=== PATIENT | male | born 1995 | race Caucasian/White ===

== ENCOUNTER 2017-11-01 15:15 | Emergency (ER) | payer OTHER ==
[~2017-11-01] VITALS: Ht 172.7 cm; Wt 63.6 kg
[~2017-11-01 15:15] MED LIST: Z.0.NO CURRENT MEDS
[2017-11-01 15:24] VITALS: BP 125/61; PULSE 55; RESP 18; TEMP 98.8; O2SAT 100
--- NOTE | 2017-11-01 16:32 | RADRPT ---
EXAM DATE/TIME: 11/01/2017 16:04 [place] COMPARISON: No previous studies available for comparison. INDICATIONS : Chest pains, short of breath. MEDICAL HISTORY : None. SURGICAL HISTORY : None. ENCOUNTER: Initial ACUITY: 1 day PAIN SCORE: 5/10 LOCATION: Bilateral chest FINDINGS: PA and lateral views of the chest demonstrate the lungs to be symmetrically aerated without evidence of mass, infiltrate or effusion. The cardiomediastinal contours are unremarkable. Osseous structure s are intact. CONCLUSION: Normal examination. González Reynolds Jr., MD on November 01, 2017 at 16:30 Board Certified Radiologist. This report was verified electronically.
[2017-11-01 18:29] LABS: AUTOMATED NEUTROPHIL # 3.6 TH/MM3 (1.8-7.7); BASOPHIL % 0.5 % (0.0-2.0); EOSINOPHIL # 0.1 TH/MM3 (0-0.4); EOSINOPHIL % 1.4 % (0.0-4.0); HEMATOCRIT 44.2 % (39.0-51.0); HEMOGLOBIN 15.3 GM/DL (13.0-17.0); LYMPH % 40.2 % (9.0-44.0); LYMPHOCYTE # 2.8 TH/MM3 (1.0-4.8); MEAN CELL VOLUME 93.5 FL (80.0-100.0); MEAN CORPUSCULAR HEMOGLOBIN 32.4 PG (27.0-34.0); MEAN CORPUSCULAR HGB CONC 34.7 % (32.0-36.0); MEAN PLATELET VOLUME 9.3 FL (7.0-11.0); MONO % 6.4 % (0.0-8.0); MONOCYTE # 0.4 TH/MM3 (0-0.9); NEUT % 51.5 % (16.0-70.0); PLATELET COUNT 202 TH/MM3 (150-450); RED BLOOD COUNT 4.72 MIL/MM3 (4.50-5.90); RED CELL DISTRIBUTION WIDTH 12.1 % (11.6-17.2)
[2017-11-01 18:39] LABS: INTERNATIONAL NORMALIZED RATIO 1.1 RATIO; PROTHROMBIN TIME - PATIENT 11.3 SEC (9.8-11.6)
[2017-11-01 18:55] LABS: BICARBONATE 27.8 MEQ/L (21.0-32.0); BLOOD UREA NITROGEN 14 MG/DL (7-18); CALCIUM 9.1 MG/DL (8.5-10.1); CHLORIDE 104 MEQ/L (98-107); CREATININE 1.07 MG/DL (0.60-1.30); GLOMERULAR FILTRATION RATE 87 ML/MIN (>89); GLUCOSE,RANDOM 77 MG/DL (74-106); MAGNESIUM 2.2 MG/DL (1.5-2.5); SODIUM (NA) 141 MEQ/L (136-145)
[2017-11-01 18:59] LABS: TROPONIN I LESS THAN 0.02 NG/ML (0.02-0.05)
--- NOTE | 2017-11-01 19:06 | PD ---
HPI Chief Complaint: Chest Pain Time Seen by Provider: 18:49 Travel History International Travel<30 days: No Contact w/Intl Traveler<30days: No Traveled to known affect area: No History of Present Illness HPI 22-year-old male complains of chest pain and generalized weakness. Patient states that he has intermittent chest pain for months. Patient states that his chest pain started again 3 days ago and has been persistent since then. Patient was seen in the emergency room in [place] twice in the past for chest pain. Patient states that he had an EKG done and was discharged home. Patient has not seen any local physician for follow-up for chest pain. Patient states that he had persistent generalized malaise and weakness. Patient denies any headache. Patient states that the chest pain is substernal pressure without radiation. Patient denies palpitation nausea or diaphoresis. Patient denies abdominal pain. Patient denies any vomiting or diarrhea. Patient denies any dysuria or frequency. Patient denies any fever chills. Patient has history of asthma. Patient denies history of CAD. Patient denies history hypertension, diabetes, hyperlipidemia. Patient is a smoker. Patient has family history of heart disease. PFSH Past Medical History ADHD: No Asthma: Yes Weight (Kg): 3 Cancer: No Cardiovascular Problems: No Diabetes: No Diminished Hearing: No Headaches: No Psychiatric: No Immunizations Current: Yes Migraines: No Seizures: No Thyroid Disease: No Ulcer: No Tetanus Vaccination: > 5 Years Influenza Vaccination: No Past Surgical History Surgical History: No Previous Surgery Appendectomy: No Section: No Cholecystectomy: No Other Surgery: No Family History Family Myocardial Infarction: Yes (FATHER'S FATHER SD IN 30S) Social History Alcohol Use: No Tobacco Use: No Substance Use: No Allergies-Medications (Allergen,Severity, Reaction): Coded Allergies: No Known Allergies (Verified , 11/20/09) Reported Meds & Prescriptions Reported Meds & Active Scripts Active Reported No Current Meds (Miscellaneous Medication) Misc Review of Systems General / Constitutional: No: Fever Eyes: No: Visual changes HENT: No: Headaches Cardiovascular: Positive: Chest Pain or Discomfort Respiratory: No: Shortness of Breath Gastrointestinal: No: Abdominal Pain Genitourinary: No: Dysuria Musculoskeletal: No: Pain Skin: No Rash Neurologic: No: Weakness Psychiatric: No: Depression Endocrine: No: Polydipsia Hematologic/Lymphatic: No: Easy Bruising Physical Exam Narrative GENERAL: Well-nourished, well-developed patient. SKIN: Focused skin assessment warm/dry. HEAD: Normocephalic. EYES: No scleral icterus. No injection or drainage. NECK: Supple, trachea midline. No JVD or lymphadenopathy. CARDIOVASCULAR: Regular rate and rhythm without murmurs, gallops, or rubs. RESPIRATORY: Breath sounds equal bilaterally. No accessory muscle use. GASTROINTESTINAL: Abdomen soft, non-tender, nondistended. MUSCULOSKELETAL: No cyanosis, or edema. BACK: Nontender without obvious deformity. No CVA tenderness. Neurologic exam: Patient is awake and alert oriented 3. No obvious focal neurological deficit. Data Data Last Documented VS Vital Signs Date Time Temp Pulse Resp B/P (MAP) Pulse Ox O2 Delivery O2 Flow Rate FiO2 11/01/17 15:24 98.8 55 18 125/61 (82) 100 Orders Orders Electrocardiogram (11/01/17 15:27) Basic Metabolic Panel (Bmp) (11/01/17 15:27) Ckmb (Isoenzyme) Profile (11/01/17 15:27) Complete Blood Count With Diff (11/01/17 15:27) Magnesium (Mg) (11/01/17 15:27) Prothrombin Time / Inr (Pt) (11/01/17 15:27) Act Partial Throm Time (Ptt) (11/01/17 15:27) Troponin I (11/01/17 15:27) Chest, Pa & Lat (11/01/17 15:27) CKMB (11/01/17 16:57) CKMB% (11/01/17 16:57) Labs Laboratory Tests Test 11/01/17 16:57 White Blood Count 7.0 TH/MM3 Red Blood Count 4.72 MIL/MM3 Hemoglobin 15.3 GM/DL Hematocrit 44.2 % Mean Corpuscular Volume 93.5 FL Mean Corpuscular Hemoglobin 32.4 PG Mean Corpuscular Hemoglobin Concent 34.7 % Red Cell Distribution Width 12.1 % Platelet Count 202 TH/MM3 Mean Platelet Volume 9.3 FL Neutrophils (%) (Auto) 51.5 % Lymphocytes (%) (Auto) 40.2 % Monocytes (%) (Auto) 6.4 % Eosinophils (%) (Auto) 1.4 % Basophils (%) (Auto) 0.5 % Neutrophils # (Auto) 3.6 TH/MM3 Lymphocytes # (Auto) 2.8 TH/MM3 Monocytes # (Auto) 0.4 TH/MM3 Eosinophils # (Auto) 0.1 TH/MM3 Basophils # (Auto) 0.0 TH/MM3 CBC Comment DIFF FINAL Differential Comment Prothrombin Time 11.3 SEC Prothromb Time International Ratio 1.1 RATIO Activated Partial Thromboplast Time 27.1 SEC Blood Urea Nitrogen 14 MG/DL Creatinine 1.07 MG/DL Random Glucose 77 MG/DL Calcium Level 9.1 MG/DL Magnesium Level 2.2 MG/DL Sodium Level 141 MEQ/L Potassium Level 3.8 MEQ/L Chloride Level 104 MEQ/L Carbon Dioxide Level 27.8 MEQ/L Anion Gap 9 MEQ/L Estimat Glomerular Filtration Rate 87 ML/MIN Total Creatine Kinase 208 U/L Creatine Kinase MB 0.6 NG/ML Troponin I LESS THAN 0.02 NG/ML MDM Medical Decision Making Medical Screen Exam Complete: Yes Emergency Medical Condition: Yes Interpretation(s) 1905 p.m. EKG shows sinus rhythm nonspecific ST-T wave changes. Last Impressions Chest X-Ray 11/01/17 1527 Signed Impressions: Service Date/Time: Wednesday, November 01, 2017 16:04 - CONCLUSION: Normal examination. González Reynolds Jr., MD 1924 PM. CBC within normal limits. CMP within normal limits. Cardiac enzymes are normal. Differential Diagnosis Differential diagnosis including musculoskeletal, angina, SD, PE, pneumothorax, electrolyte abnormality, dehydration. Narrative Course 22-year-old male with recurrent chest pain and generalized weakness. Diagnosis Primary Impression: Chest pain Haim Mckeon MD Nov 01, 2017 19:06
--- NOTE | 2017-11-02 22:45 | EKG ---
Date Performed: 11/01/2017 Time Performed: 16:52:35 PTAGE: 22 years EKG: SINUS BRADYCARDIA BORDERLINE ECG NO PREVIOUS TRACING DOCTOR: Frank Samuels Interpretating Date/Time 11/02/2017 22:45:00
== END 2017-11-01 20:11 | disposition home or self-care (01) ==
LOC: NED 15:15 → NEPD 20:11
DX: R07.9 Chest pain, unspecified (principal); R53.1 Weakness; R53.81 Other malaise; R00.1 Bradycardia, unspecified; J45.909 Unspecified asthma, uncomplicated
CPT/HCPCS: 71046; 80048; 82550; 82552; 83735; 84484; 85025; 85610; 85730; 93005